=== PATIENT | male | born 2000 | race Caucasian/White ===

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

== ENCOUNTER 2019-01-13 17:50 | Emergency (ER) | payer MEDICAID, OTHER ==
[~2019-01-13] VITALS: Ht 180.3 cm; Wt 68.0 kg
--- NOTE | 2019-01-13 18:15 | NUR ---
pt ambulating with steady gait. mother at bedside. A&O x4. c/o RIGHT nostril pain x4 months. sudden onset and pain is getting worse per pt. sharp pain 8/10 on the pain scale. aggravated by pressure or contact to area. Breathing even and unlabored. Denies any SOB. speech is clear and able to make needs known / follow commands. Denies / GI Distress. bed low, s/r up x2.
--- NOTE | 2019-01-13 19:05 | NUR ---
Assumed care of patient from JYOTSNA Andujar.
--- NOTE | 2019-01-13 19:30 | NUR ---
Back to ER from CT.
--- NOTE | 2019-01-13 19:59 | NUR ---
Dr. Sena on bedside.
--- NOTE | 2019-01-13 20:18 | NUR ---
Patient discharged to home in stable conditon. Written and verbal after care instructions given. Patient verbalizes understanding of instructions. Pt ambulated out of the ER with steady gait. All belongings with pt.
[2019-01-13 20:19] VITALS: BP 129/82
== END 2019-01-13 20:20 | disposition home or self-care (01) ==
LOC: ER 17:51
DX: J32.9 Chronic sinusitis, unspecified (principal)
CPT/HCPCS: 70486; A4663

== ENCOUNTER 2019-01-17 05:20 | Emergency (ER) | payer OTHER ==
[~2019-01-17] VITALS: Ht 180.3 cm; Wt 68.0 kg
[2019-01-17] MEDS ORDERED: CLON0.5T PO (05:34)
--- NOTE | 2019-01-17 05:34 | NUR ---
Pt arrived at the ER accompanied by his mother with chief complaint of anxiety/panic attack x 2 hours [employer]. Pt has hx of anxiety. Took Clonazepam 0.5mg at 9pm last night and had taken another 0.5tab of Clonazepam 0.5mg at 2:30am with no relief. Patient AOX4. No cardiovascular concern. Denies any SOB. No /GI concern.
--- NOTE | 2019-01-17 05:44 | NUR ---
Dr. Stock on bedside for MSE.
[2019-01-17] MEDS ORDERED: LORAZEPAM 2 MG/1 ML VIAL ONE (05:54)
[2019-01-17] MEDS ORDERED: LORAZEPAM 2 MG/1 ML VIAL IM ONE (06:00)
[2019-01-17 06:21] LABS: BASOPHILS % (AUTO) 0.6 % (0.0-2.0); EOSINOPHILS # (AUTO) 0.1 K/uL (0.0-0.7); EOSINOPHILS % (AUTO) 1.1 % (0.0-7.0); LYMPHOCYTES # (AUTO) 2.9 K/uL (20.0-40.0); LYMPHOCYTES % (AUTO) 41.4 % (20.5-74.5); MEAN CORPUSCULAR HEMOGLOBIN 28.2 uug (23.8-33.4); MEAN CORPUSCULAR HGB CONC 33 g/dL (32.5-36.3); MEAN CORPUSCULAR VOLUME 84.7 fL (73.0-96.2); MONOCYTES # (AUTO) 0.5 K/uL (2.0-10.0); MONOCYTES % (AUTO) 7.8 % (0-11); NEUTROPHILS # (AUTO) 3.4 K/uL (1.8-8.9); NEUTROPHILS % (AUTO) 49.1 % (31.5-64.5); PLATELET COUNT (AUTO) 199 K/uL (152-348); RED BLOOD CELL COUNT(AUTO) 5.31 MIL/uL (4.06-5.63)
[2019-01-17 06:39] LABS: ALANINE AMINOTRANSFERASE 28 U/L (16-63); ALKALINE PHOSPHATASE 64 U/L (50-136); ASPARTATE AMINOTRANSFERASE 16 U/L (15-37); BILIRUBIN,DIRECT 0.2 mg/dL (0.0-0.2); BILIRUBIN,TOTAL 0.6 mg/dL (0.2-1.0); CARBON DIOXIDE 28 mmol/L (21-32); CHLORIDE 106 mmol/L (98-107); GLUCOSE 90 mg/dL (74-106); POTASSIUM 3.8 mmol/L (3.5-5.1); TOTAL PROTEIN, SERUM 7.6 g/dL (6.4-8.2); UREA NITROGEN, BLOOD 18 mg/dL (7-18)
[2019-01-17 06:43] LABS: ACETAMINOPHEN < 2.0 ug/mL (10-30)
[2019-01-17 06:44] LABS: ETHANOL < 3 MG/DL (0-0)
[2019-01-17 06:50] LABS: *BILIRUBIN,URIN NEGATIVE (NEGATIVE); *BLOOD, URINE NEGATIVE (NEGATIVE); *CLARITY,URINE CLEAR (CLEAR); *COLOR,URINE YELLOW (YELLOW); *KETONES,URINE NEGATIVE (NEGATIVE); LEUKOCYTE ESTERASE ,URINE NEGATIVE (NEGATIVE); NITRITE, URINE NEGATIVE (NEGATIVE); UGLUCOSE NEGATIVE (NEGATIVE)
--- NOTE | 2019-01-17 06:57 | NUR ---
Patient reported feeling less anxious now. No other complain at this time. Continue to monitor.
--- NOTE | 2019-01-17 07:05 | NUR ---
Report given to day shift RN Sepi.
[2019-01-17 07:24] LABS: *AMPHETAMINE, URINE NEGATIVE (NEGATIVE); *BARBITURATE, URINE NEGATIVE (NEGATIVE); *CANNABINOID, URINE NEGATIVE (NEGATIVE); *COCCAINE, URINE NEGATIVE (NEGATIVE); *OPIATE, URINE NEGATIVE (NEGATIVE); *PHENCYCLIDINE SCREEN,URINE NEGATIVE (NEGATIVE)
--- NOTE | 2019-01-17 08:59 | NUR ---
PINKY AT BEDSIDE FOR PSYCH EVAL
--- NOTE | 2019-01-17 09:45 | NUR ---
Patient discharged to home in stable conditon. Written and verbal after care instructions given. Patient verbalizes understanding of instructions.pt with mother.
[2019-01-17 10:03] VITALS: BP 121/67
== END 2019-01-17 09:45 | disposition home or self-care (01) ==
LOC: ER 05:20
DX: F41.9 Anxiety disorder, unspecified (principal); F32.2 Major depressive disorder, single episode, severe without psychotic features; Z79.899 Other long term (current) drug therapy
CPT/HCPCS: 36415; 80048; 80076; 80307; 81001; 85025; 96372; 99284; G0480 ×2; G0481; J2060; A4663

== ENCOUNTER 2019-01-23 02:42 | Emergency (ER) | payer OTHER ==
[~2019-01-23] VITALS: Ht 180.3 cm; Wt 68.0 kg
[~2019-01-23 02:42] MED LIST: CLON0.5T PO
--- NOTE | 2019-01-23 03:10 | NUR ---
PT IS AMBULATORY W/ STABLE GAIT ACC BY MOTHER FLAT AFFECT CALM AND COMPLIANT CHANGED IN TO PT GOWN PT ABLE TO SPEAK CLEAR AND COMPLETE SENTENCES DENIES LOC DENIES SI/HI CONCERNS AT THIS TIME C/O PANIC ATTACK AND WORSENING INVOLUNTARY MOVEMENTS (TICS) AND ANGRY/CHANGES IN TEMPERAMENT PT WILL BE SEEN BY PSYCHIATRIST TOMORROW MD AT BEDSIDE FOR HX AND PHYSICAL
[2019-01-23] MEDS ORDERED: LORAZEPAM 2 MG/1 ML VIAL IM ONE ×2 (03:45→04:30)
[2019-01-23 03:47] LABS: WHITE BLOOD COUNT (AUTO) 7.6 K/UL (4.0-11.2)
[2019-01-23 03:48] LABS: HEMATOCRIT 43.4 % (40-50); HEMOGLOBIN 14.4 G/DL (14.0-18.0); MEAN CORPUSCULAR HEMOGLOBIN 27.6 UUG (27.0-31.0); MEAN CORPUSCULAR HGB CONC 33 g/dL (32.0-37.0); MEAN CORPUSCULAR VOLUME 83.4 FL (82.0-92.0); PLATELET COUNT (AUTO) 186 K/UL (150-450)
[2019-01-23] MEDS ORDERED: LORAZEPAM 2 MG/1 ML VIAL ONE ×2 (03:48→04:21)
[2019-01-23 03:49] LABS: BASOPHILS % (AUTO) 0.3 % (0.0-2.0); EOSINOPHILS # (AUTO) 0.1 K/uL (0.0-0.7); EOSINOPHILS % (AUTO) 0.9 % (0.0-7.0); LYMPHOCYTES # (AUTO) 1.9 K/UL (0.8-4.8); LYMPHOCYTES % (AUTO) 24.5 % (20.5-74.5); MONOCYTES # (AUTO) 0.5 K/UL (0.1-1.30); MONOCYTES % (AUTO) 6.3 % (0-11); NEUTROPHILS # (AUTO) 5.2 K/UL (1.8-8.9)
[2019-01-23 04:01] LABS: CARBON DIOXIDE 29 mmol/L (21-32); CHLORIDE 109 mmol/L (98-107); GLUCOSE 107 mg/dL (74-106); POTASSIUM 3.8 mmol/L (3.5-5.1); UREA NITROGEN, BLOOD 17 mg/dL (7-20)
[2019-01-23 04:02] LABS: ALANINE AMINOTRANSFERASE 21 U/L (16-63); ALKALINE PHOSPHATASE 56 U/L (50-136); ASPARTATE AMINOTRANSFERASE 17 U/L (15-37); BILIRUBIN,DIRECT 0.2 mg/dL (0.0-0.2); BILIRUBIN,TOTAL 0.8 mg/dL (0.1-1.0)
[2019-01-23 04:15] LABS: THYROID STIMULATING HORMONE 0.508 mIU/mL (0.358-3.740)
[2019-01-23 04:23] LABS: ETHANOL < 3 MG/DL (0-0)
[2019-01-23 06:16] LABS: *AMPHETAMINE, URINE NEGATIVE (NEGATIVE); *BARBITURATE, URINE NEGATIVE (NEGATIVE); *CANNABINOID, URINE NEGATIVE (NEGATIVE); *COCCAINE, URINE NEGATIVE (NEGATIVE); *OPIATE, URINE NEGATIVE (NEGATIVE); *PHENCYCLIDINE SCREEN,URINE NEGATIVE (NEGATIVE)
[2019-01-23 06:17] VITALS: BP 100/62
--- NOTE | 2019-01-23 06:17 | NUR ---
AMBULATORY W/ STABLE GAIT ALL BELONGINGS W/ PT Patient discharged to home in stable conditon. Written and verbal after care instructions given. Patient verbalizes understanding of instructions. DENIES SI/HI COCERNS AT THIS TIME
[2019-01-23 06:22] LABS: *CLARITY,URINE CLEAR (CLEAR); *COLOR,URINE YELLOW (YELLOW); PH,URINE 8.5 (5.0-8.0)
[2019-01-23 06:23] LABS: *BILIRUBIN,URIN NEGATIVE (NEGATIVE); *BLOOD, URINE NEGATIVE (NEGATIVE); *KETONES,URINE NEGATIVE (NEGATIVE); *UROBILINOGEN,URINE 0.2 E.U./dl (NORMAL); LEUKOCYTE ESTERASE ,URINE NEGATIVE (NEGATIVE); NITRITE, URINE NEGATIVE (NEGATIVE); UGLUCOSE NEGATIVE (NEGATIVE)
== END 2019-01-23 06:18 | disposition home or self-care (01) ==
LOC: ER 02:50
DX: F41.9 Anxiety disorder, unspecified (principal); Z79.899 Other long term (current) drug therapy
CPT/HCPCS: 36415; 70450; 80048; 80076; 80307; 81001; 84443; 85025; 93005; 96372 ×2; 99284; G0480; J2060 ×2; A4663

== ENCOUNTER 2019-04-02 23:29 | Emergency (ER) | payer BC, OTHER ==
[~2019-04-02] VITALS: Ht 180.3 cm; Wt 68.9 kg
[2019-04-02] MEDS ORDERED: FLUV50TA10 PO (23:43)
[2019-04-02] MEDS ORDERED: ARIP5TAB10 PO (23:43)
[2019-04-02] MEDS ORDERED: GUAN1TAB2 PO (23:43)
[2019-04-02] MEDS ORDERED: LORAZEPAM 2 MG/1 ML VIAL ONE (23:55)
--- NOTE | 2019-04-02 23:57 | NUR ---
Patient discharged to home in stable conditon. Written and verbal after care instructions given. Patient verbalizes understanding of instructions. Ambulated from ER with stable gait. patient will be driven home by parents.
[2019-04-02 23:58] VITALS: BP 121/75
[2019-04-03] MEDS ORDERED: LORAZEPAM 2 MG/1 ML VIAL IM ONE
== END 2019-04-02 23:59 | disposition home or self-care (01) ==
LOC: ER 23:31
DX: F41.9 Anxiety disorder, unspecified (principal); F32.9 Major depressive disorder, single episode, unspecified; Z79.899 Other long term (current) drug therapy
CPT/HCPCS: 96372; 99284; J2060; A4663

== ENCOUNTER 2019-05-09 20:11 | Emergency (ER) | payer BC ==
[~2019-05-09] VITALS: Ht 180.3 cm; Wt 70.8 kg
[~2019-05-09 20:11] MED LIST changes: +ARIP5TAB10 PO; +FLUV50TA10 PO; +GUAN1TAB2 PO
[2019-05-09] MEDS ORDERED: DIVA500T2 PO (20:27)
--- NOTE | 2019-05-09 20:33 | NUR ---
Dr. Sena at bedside for MSE.
--- NOTE | 2019-05-09 20:40 | NUR ---
Pt out of ER for CT.
--- NOTE | 2019-05-09 20:53 | NUR ---
Pt back to ER from CT.
--- NOTE | 2019-05-09 21:08 | NUR ---
Patient discharged to home in stable conditon. Written and verbal after care instructions given. Patient verbalizes understanding of instructions. PT ambulated out of ER with steady gait, no acute signs of distress, VSS, all belongings taken.
[2019-05-09 21:09] VITALS: BP 125/80
== END 2019-05-09 21:09 | disposition home or self-care (01) ==
LOC: ER 20:14
DX: R51 Headache (principal); F07.81 Postconcussional syndrome; F41.9 Anxiety disorder, unspecified; Z79.899 Other long term (current) drug therapy
CPT/HCPCS: 70450; A4663

== ENCOUNTER 2020-11-24 20:23 | Emergency (ER) | payer BC, OTHER ==
[~2020-11-24 20:23] MED LIST changes: +DIVA500T2 PO; -FLUV50TA10 PO
--- NOTE | 2020-11-24 21:57 | NUR ---
Pt not in waiting room
== END 2020-11-24 21:58 | disposition left against medical advice (07) ==
LOC: ER 20:32
DX: Z53.21 Procedure and treatment not carried out due to patient leaving prior to being seen by health care provider (principal)

== ENCOUNTER 2020-11-30 17:39 | Emergency (ER) | payer OTHER ==
[~2020-11-30] VITALS: Ht 180.3 cm; Wt 90.7 kg
--- NOTE | 2020-11-30 18:27 | NUR ---
Pending MD evaluation, patient is seen resting comfortably on gurney while using his personal electronic device, [employer].
--- NOTE | 2020-11-30 19:10 | NUR ---
RECEIVED REPORT FROM JYOTSNA IQBAL. PT NOTED TO BE IN BED, RESTING COMFORTABLY, NOTED TO BE USING HIS MOBILE DEVICE.
--- NOTE | 2020-11-30 20:38 | NUR ---
Patient left without being seen by ER physician.
== END 2020-11-30 20:41 | disposition left against medical advice (07) ==
LOC: ER 17:39
DX: Z53.21 Procedure and treatment not carried out due to patient leaving prior to being seen by health care provider (principal)

== ENCOUNTER 2021-03-18 11:17 | Emergency (ER) | payer OTHER ==
[~2021-03-18] VITALS: Ht 180.3 cm; Wt 99.8 kg
[2021-03-18] MEDS ORDERED: ONDANSETRON 4 MG/2 ML VIAL IV ONE (12:00)
[2021-03-18] MEDS ORDERED: IV NORMAL SALINE 1000 ML BAG IV ONE ×2 (12:00→13:15)
[2021-03-18] MEDS ORDERED: PANTOPRAZOLE SODIUM 40 MG VIAL IV ONE (12:00)
[2021-03-18 12:19] LABS: HEMATOCRIT 46.5 % (36.7-47.1); MEAN CORPUSCULAR HEMOGLOBIN 27.9 uug (23.8-33.4); MEAN CORPUSCULAR VOLUME 82.9 fL (73.0-96.2); PLATELET COUNT (AUTO) 221 K/uL (152-348)
[2021-03-18 12:21] LABS: CREATININE 1.3 mg/dL (0.6-1.3)
[2021-03-18 12:27] LABS: BILIRUBIN,DIRECT 0.1 mg/dL (0.0-0.2); BILIRUBIN,TOTAL 0.4 mg/dL (0.2-1.0); TOTAL PROTEIN, SERUM 7.8 g/dL (6.4-8.2)
[2021-03-18] MEDS ORDERED: ONDANSETRON 4 MG/2 ML VIAL ONE (12:30)
[2021-03-18] MEDS ORDERED: PANTOPRAZOLE SODIUM 40 MG VIAL ONE (12:30)
[2021-03-18] MEDS ORDERED: OMEP40CA21 PO (13:44)
[2021-03-18] MEDS ORDERED: ONDA4TAB11 PO (13:44)
--- NOTE | 2021-03-18 13:57 | NUR ---
PT WAS EVALUATED BY DR LANDON. PT WAS D/C'd TO HOME. D/C INSTRUCTIONS GIVEN TO THE PT BY DR LANDON.
[2021-03-18 14:00] VITALS: BP 131/72
== END 2021-03-18 14:18 | disposition home or self-care (01) ==
LOC: ER 11:20
DX: R11.2 Nausea with vomiting, unspecified (principal); R19.7 Diarrhea, unspecified; R10.13 Epigastric pain; Z20.822 Contact with and (suspected) exposure to COVID-19; Z82.49 Family history of ischemic heart disease and other diseases of the circulatory system; D72.829 Elevated white blood cell count, unspecified; F41.9 Anxiety disorder, unspecified; F32.A Depression, unspecified; Z79.899 Other long term (current) drug therapy; R03.0 Elevated blood-pressure reading, without diagnosis of hypertension
CPT/HCPCS: 36415; 80048; 80076; 83690; 85025; 87426; 96361; 96374; 96375; 99284; C9113; J2405; A4663; J7030

== ENCOUNTER 2023-02-18 08:04 | Emergency (ER) | payer OTHER ==
[~2023-02-18] VITALS: Ht 182.9 cm; Wt 93.0 kg
[~2023-02-18 08:04] MED LIST changes: +OMEP40CA21 PO; +ONDA4TAB11 PO
[2023-02-18 08:21] VITALS: O2SAT 99
[2023-02-18] MEDS ORDERED: KETOROLAC TROMETHAMINE 15 MG INJ ONE (08:40)
[2023-02-18] MEDS ORDERED: KETOROLAC TROMETHAMINE 15 MG INJ IM ONE (08:45)
[2023-02-18] MEDS ORDERED: ONDA4TAB5 PO (09:00)
[2023-02-18] MEDS ORDERED: BENZ-13 PO (09:00)
[2023-02-18] MEDS ORDERED: IBUP-1955 PO (09:00)
== END 2023-02-18 09:25 | disposition home or self-care (01) ==
LOC: ER 08:04
DX: J06.9 Acute upper respiratory infection, unspecified (principal); R05.9 Cough, unspecified; R09.81 Nasal congestion; R50.9 Fever, unspecified; M79.10 Myalgia, unspecified site; J02.9 Acute pharyngitis, unspecified; H92.03 Otalgia, bilateral; R11.2 Nausea with vomiting, unspecified; Z79.899 Other long term (current) drug therapy; Z20.822 Contact with and (suspected) exposure to COVID-19
CPT/HCPCS: 99283; 87426; 87804 ×2; 96372; 87420; J1885; A4606; A4663

== ENCOUNTER 2024-06-28 10:31 | Emergency (ER) | payer OTHER ==
[~2024-06-28] VITALS: Ht 182.9 cm; Wt 88.5 kg
[~2024-06-28 10:31] MED LIST changes: +BENZ-13 PO; -CLON0.5T PO; -DIVA500T2 PO; +IBUP-1955 PO; -OMEP40CA21 PO; -ONDA4TAB11 PO; +ONDA4TAB5 PO
[2024-06-28] MEDS: methylPREDNISolone SOD SUCC 125 MG/2 ML VIAL IV ONE (11:11)
[2024-06-28] MEDS: IV NORMAL SALINE 1000 ML BAG IV ONE (11:11)
[2024-06-28] MEDS ORDERED: methylPREDNISolone SOD SUCC 125 MG/2 ML VIAL ONE (11:13)
[2024-06-28 11:30] LABS: BASOPHILS % (AUTO) 0.3 % (0.0-2.0); DIFFERENTIAL COMMENT 1; EOSINOPHILS # (AUTO) 0.1 K/uL (0.0-0.7); EOSINOPHILS % (AUTO) 1.3 % (0.0-7.0); HEMATOCRIT 38.3 % (36.7-47.1); HEMOGLOBIN 13.2 g/dL (12.5-16.3); LYMPHOCYTES # (AUTO) 0.8 K/uL (0.8-4.8); LYMPHOCYTES % (AUTO) 11.3 % (20.5-51.5); MEAN CORPUSCULAR HEMOGLOBIN 28.3 uug (23.8-33.4); MEAN CORPUSCULAR HGB CONC 34 g/dL (32.5-36.3); MEAN CORPUSCULAR VOLUME 82.3 fL (73.0-96.2); MONOCYTES # (AUTO) 0.8 K/uL (0.1-1.30); MONOCYTES % (AUTO) 10.5 % (0.0-11.0); NEUTROPHILS # (AUTO) 5.5 K/uL (1.8-8.9); NEUTROPHILS % (AUTO) 76.6 % (38.5-71.5); PLATELET COUNT (AUTO) 199 K/uL (152-348); RED BLOOD CELL COUNT(AUTO) 4.66 MIL/uL (4.06-5.63); RED CELL DISTRIBUTION WIDTH 14.3 % (12.1-16.2); WHITE BLOOD COUNT (AUTO) 7.2 K/uL (3.6-10.2)
[2024-06-28 11:42] LABS: CALCIUM 9.5 mg/dL (8.5-10.1); CREATININE 1.2 mg/dL (0.6-1.3); POTASSIUM 4.1 mmol/L (3.5-5.1)
[2024-06-28] MEDS ORDERED: METOCLOPRAMIDE HCL 10 MG/2 ML VIAL ONE (11:44)
[2024-06-28] MEDS ORDERED: LORAZEPAM 2 MG/1 ML VIAL ONE (11:45)
[2024-06-28 11:48] LABS: ALBUMIN 3.8 g/dL (3.4-5.0); BILIRUBIN,TOTAL 0.6 mg/dL (0.2-1.0); TOTAL PROTEIN, SERUM 7.6 g/dL (6.4-8.2)
[2024-06-28] MEDS: LORAZEPAM 2 MG/1 ML VIAL IV ONE (11:48)
[2024-06-28] MEDS: METOCLOPRAMIDE HCL 10 MG/2 ML VIAL IV ONE (11:50)
[2024-06-28] MEDS ORDERED: DOXY100T2 PO (12:41)
[2024-06-28] MEDS ORDERED: LORA10CA PO (12:41)
[2024-06-28 12:50] VITALS: BP 110/66; O2SAT 96
== END 2024-06-28 12:50 | disposition home or self-care (01) ==
LOC: ER 10:31
DX: J06.9 Acute upper respiratory infection, unspecified (principal); B97.89 Other viral agents as the cause of diseases classified elsewhere; F41.9 Anxiety disorder, unspecified; F32.A Depression, unspecified; F19.10 Other psychoactive substance abuse, uncomplicated; Z79.899 Other long term (current) drug therapy; Z88.7 Allergy status to serum and vaccine; Z86.69 Personal history of other diseases of the nervous system and sense organs; Z87.09 Personal history of other diseases of the respiratory system; Z87.39 Personal history of other diseases of the musculoskeletal system and connective tissue; Z20.822 Contact with and (suspected) exposure to COVID-19
CPT/HCPCS: 99285; 96374; 96375; 71045; 96361; 87426; 87804 ×2; 80053; 85025; 36415; 93005; J2919; J2060; J2765; J7040; A4606; A4663